=== PATIENT | male | born 1980 | race American Indian/Alaskan Native ===

== ENCOUNTER 2019-05-06 20:36 | Emergency (ER) | payer SELFPAY ==
[2019-05-06 21:03] VITALS: BP 112/73
--- NOTE | 2019-05-06 21:05 | Emergency Department Report ---
ED Allergic Reaction HPI - General Chief complaint: Allergic Reaction Stated complaint: ALLERGIC REACTION TO NOSE RING/FACE SWOLLEN Time Seen by Provider: 05/06/19 21:00 Source: patient Mode of arrival: Ambulatory Limitations: No Limitations - History of Present Illness Initial Comments: pt is a 39 yo male who presents to the ED with c/o a possible allergic reaction that began 4 days ago. he states that he bought a nose ring from the [employer] and it was nickel. states he began to have erythema to his bilateral cheeks and around the nose. denies any itching. took benadryl and motrin. denies any drainage from the nose. no SOB. no trouble swallowing, no swelling of the throat, no fever. - Related Data Previous Rx's Medication Instructions Recorded Last Taken Type cephALEXin [Keflex] 500 mg PO QID 7 Days #28 capsule 05/06/19 Unknown Rx diphenhydrAMINE [Benadryl CAP] 25 mg PO Q6HR #20 capsule 05/06/19 Unknown Rx Allergies Allergy/AdvReac Type Severity Reaction Status Date / Time No Known Allergies Allergy Unverified 05/06/19 21:03 ED Review of Systems ROS: Stated complaint: ALLERGIC REACTION TO NOSE RING/FACE SWOLLEN Other details as noted in HPI Comment: All other systems reviewed and negative ED Past Medical Hx - Medications Home Medications: Home Medications Medication Instructions Recorded Confirmed Last Taken Type cephALEXin [Keflex] 500 mg PO QID 7 Days #28 capsule 05/06/19 Unknown Rx diphenhydrAMINE [Benadryl CAP] 25 mg PO Q6HR #20 capsule 05/06/19 Unknown Rx ED Physical Exam - General Limitations: No Limitations General appearance: alert, in no apparent distress - Head Head exam: Present: atraumatic, normocephalic - Eye Eye exam: Present: normal appearance, PERRL - ENT ENT exam: Present: normal orophraynx, mucous membranes moist, other (no sinus TTP) - Respiratory Respiratory exam: Present: normal lung sounds bilaterally. Absent: respiratory distress, wheezes, rales, rhonchi, stridor, chest wall tenderness, accessory muscle use, decreased breath sounds, prolonged expiratory - Cardiovascular Cardiovascular Exam: Present: regular rate, normal rhythm, normal heart sounds. Absent: systolic murmur, diastolic murmur, rubs, gallop - Neurological Exam Neurological exam: Present: alert, oriented X3 - Psychiatric Psychiatric exam: Present: normal affect, normal mood - Skin Skin exam: Present: warm, dry, other (sharply demarcated areas of erythema and increased warmth to the bilateral cheeks, no drainage, no blistering, no skin denuding) ED Course Vital Signs 05/06/19 21:00 Temperature 98.9 F Pulse Rate 94 H Respiratory 16 Rate Blood Pressure 112/73 O2 Sat by Pulse 99 Oximetry ED Medical Decision Making - Medical Decision Making pt is a 39 yo male who presents to the ED with c/o a possible allergic reaction that began 4 days ago. he states that he bought a nose ring from the [employer] and it was nickel. states he began to have erythema to his bilateral cheeks and around the nose. denies any itching. took benadryl and motrin. denies any drainage from the nose. no SOB. no trouble swallowing, no swelling of the throat, no fever. vitals are normal. on exam: sharply demarcated areas of erythema and increased warmth to the bilateral cheeks, no drainage, no blistering, no skin denuding. appears to be a cellulitis vs erysipelas. could possibly be allergy related due to nickel from new placing new jewelry. pt given prescription for keflex and benadryl. advised to take medication as prescribed. follow up with a primary care doctor in the next 2-3 days for reevaluation. given list of community resources. return to the emergency room for any new or worsening symptoms or if symptoms do not improve. - Differential Diagnosis allergic rxn, contact derm, irritant derm, cellulitis, erysipelas Critical care attestation.: If time is entered above; I have spent that time in minutes in the direct care of this critically ill patient, excluding procedure time. ED Disposition Clinical Impression: Allergic reaction Qualifiers: Encounter type: initial encounter Qualified Code(s): T78.40XA - Allergy, unspecified, initial encounter Cellulitis Qualifiers: Site of cellulitis: face Qualified Code(s): L03.211 - Cellulitis of face Disposition: - TO HOME OR SELFCARE Is pt being admited?: No Does the pt Need Aspirin: No Condition: Stable Instructions: Cellulitis (ED), Allergies (ED) Additional Instructions: please take medication as prescribed. follow up with a primary care doctor in the next 2-3 days for reevaluation. return to the emergency room for any new or worsening symptoms or if symptoms do not improve. Prescriptions: diphenhydrAMINE [Benadryl CAP] 25 mg PO Q6HR #20 capsule cephALEXin [Keflex] 500 mg PO QID 7 Days #28 capsule Referrals: ANALILIA NOVAK MD [Primary Care Provider] - 2-3 Days [facility] [Outside] - 2-[address] [facility] [place] [Outside] - 2-3 Days Time of Disposition: 21:31 Print Language: FAROESE
== END 2019-05-06 21:40 | disposition home or self-care (01) ==
LOC: ED 20:36
DX: T78.40XA Allergy, unspecified, initial encounter (principal); L03.211 Cellulitis of face; Y92.89 Other specified places as the place of occurrence of the external cause
CPT/HCPCS: 99282

== ENCOUNTER 2019-06-27 14:15 | Emergency (ER) | payer SELFPAY ==
[2019-06-27 14:21] VITALS: BP 107/62
--- NOTE | 2019-06-27 14:21 | Event Note ---
ED Screening Note Date of service: 06/27/19 Time: 14:20 ED Screening Note: 39 y o male presents with abscess to his right armpit cc of pain and swelling This initial assessment/diagnostic orders/clinical plan/treatment(s) is/are subject to change based on patients health status, clinical progression and re- assessment by fellow clinical providers in the ED. Further treatment and workup at subsequent clinical providers discretion. Patient/guardian urged not to elope from the ED as their condition may be serious if not clinically assessed and managed. Initial orders include: ACC eval I&D
[2019-06-27] MEDS ORDERED: XYLOCAINE 1% MPF 5 mL INFILTRATI ONE (14:43)
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
== END 2019-06-27 15:35 | disposition home or self-care (01) ==
LOC: ED 14:15
DX: L02.411 Cutaneous abscess of right axilla (principal); F17.200 Nicotine dependence, unspecified, uncomplicated; F12.10 Cannabis abuse, uncomplicated; Z98.890 Other specified postprocedural states; Z79.899 Other long term (current) drug therapy

== ENCOUNTER 2019-09-20 16:16 | Emergency (ER) | payer SELFPAY ==
[2019-09-20 16:41] VITALS: BP 125/81
[2019-09-20] MEDS ORDERED: traMADol 50 MG TAB PO ONE (23:08)
[2019-09-20] MEDS ORDERED: cephALEXin 500 MG CAP PO ONE (23:08)
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
== END 2019-09-20 23:49 | disposition home or self-care (01) ==
LOC: ED 16:16
DX: L02.213 Cutaneous abscess of chest wall (principal); F17.200 Nicotine dependence, unspecified, uncomplicated; F12.10 Cannabis abuse, uncomplicated; F14.10 Cocaine abuse, uncomplicated; Z98.890 Other specified postprocedural states; Z79.899 Other long term (current) drug therapy